=== PATIENT | female | born 1980 | race Caucasian/White ===

== ENCOUNTER 2016-06-07 10:11 | Emergency (ER) | payer MEDICAID ==
[~2016-06-07 10:11] MED LIST: AMOXICILLIN500 M1 PO; MOTRIN600 M1 PO
== END 2016-06-07 10:35 | disposition home or self-care (01) ==
LOC: CFTX 10:11
DX: H66.002 Acute suppurative otitis media without spontaneous rupture of ear drum, left ear (principal); J01.90 Acute sinusitis, unspecified
CPT/HCPCS: 99282

== ENCOUNTER 2016-09-03 19:58 | Emergency (ER) | payer MEDICAID ==
[2016-09-03 21:28] LABS: INFLUENZA A NEG (NEG); INFLUENZA B NEG (NEG)
== END 2016-09-03 21:51 | disposition home or self-care (01) ==
LOC: CED 19:58
PROVIDERS: Emergency Medicine
DX: J02.9 Acute pharyngitis, unspecified (principal); R20.9 Unspecified disturbances of skin sensation; J45.909 Unspecified asthma, uncomplicated; Z98.51 Tubal ligation status
CPT/HCPCS: 87651; 87804; 99284